=== PATIENT | female | born 1995 | race Caucasian/White ===

== ENCOUNTER 2018-11-11 23:22 | Emergency (ER) | payer OTHER ==
[2018-11-12] MEDS ORDERED: Norflex 60 MG/2 ML IM ONE (00:01)
[2018-11-12] MEDS ORDERED: TORAdol 30 mg Injection IM ONE (00:01)
[2018-11-12 00:07] LABS: Appearance TURBID (CLEAR); Bacteria MODERATE /HPF (NEGATIVE); Bilirubin NEGATIVE (NEGATIVE); Blood MODERATE Ery/ul (0-5); Epithelial Cells FEW /HPF (FEW); Glucose NEGATIVE (NEGATIVE); Ketones NEGATIVE (NEGATIVE); Leukocyte Esterase NEGATIVE (NEGATIVE); Nitrite NEGATIVE (NEGATIVE); Protein,Urine Dip NEGATIVE (Negative); RBC 0-2 /HPF (0-2); Specific Gravity 1.021 (1.005-1.025); Urobilinogen NEGATIVE mg/dL (0-1)
[2018-11-12] MEDS ORDERED: Norflex 60 MG/2 ML ONE (00:08)
[2018-11-12] MEDS ORDERED: TORAdol 30 mg Injection ONE (00:08)
[2018-11-12] MEDS ORDERED: Macrobid 100MG Capsule PO ONE (00:19)
[2018-11-12] MEDS ORDERED: Macrobid 100MG Capsule ONE (00:24)
--- NOTE | 2018-11-12 00:40 | ERPHSYRPT ---
- History of Present Illness Time Seen by Provider: 11/11/18 23:55 Source: patient Exam Limitations: clinical condition Patient Subjective Stated Complaint: c/o low back pain to middle of back x1 week. went to the [facility] clinic on 11/04/18 and got naproxen and 20 lb weigh limit for work and takes tylenol prn. Pt gets no relief from pain. Pt was pulling mop bucket at work and the door slammed and hit her in the back. Triage Nursing Assessment: lungs clear, heart tones reg, abd large, soft with active bs x4 quad. Pt c/o back pain since 11/03/18 after hurting it at work. Pt saw [facility] on 11/04/18 and received Naproxen with no relief. Physician History: PATIENT STRUCK IN HER LOWER BACK BY DOOR HANDLE AT WORK 1 WEEK AGO AND HAS PERSISTENT PAIN. HAS PAIN UPON LIFTING, BENDING OR TWISTING. DENIES BRUISING TO BACK, RADIATION OF PAIN INTO LEGS. Timing/Duration: week(s) Method of Injury: direct blow Quality: sharp, throbbing Back Pain Location: lumbar spine Severity of Pain-Max: moderate Severity of Pain-Current: moderate Modifying Factors: Improves With: movement Associated Symptoms: denies symptoms Previous symptoms: no prior history Allergies/Adverse Reactions: No Known Drug Allergies Allergy (Verified 05/18/16 11:32) Home Medications: Etonogestrel [Nexplanon] 68 mg SUBDERMAL 11/11/18 [History] Naproxen 500 mg [Naprosyn 500 MG] 500 mg PO BID PRN PRN 11/11/18 [History] Venlafaxine HCl [Venlafaxine HCl ER] 75 mg PO HS 11/11/18 [History] lamoTRIgine [Lamotrigine] 100 mg PO HS 11/11/18 [History] Hx Tetanus, Diphtheria Vaccination/Date Given: Yes Hx Influenza Vaccination/Date Given: Yes Hx Pneumococcal Vaccination/Date Given: No Immunizations Up to Date: Yes - Review of Systems Constitutional: No Symptoms Musculoskeletal: Back Pain, Injury - Past Medical History Pertinent Past Medical History: Yes Neurological History: No Pertinent History ENT History: No Pertinent History Cardiac History: No Pertinent History Respiratory History: No Pertinent History Endocrine Medical History: No Pertinent History Musculoskeletal History: No Pertinent History GI Medical History: Irritable Bowel History: No Pertinent History Psycho-Social History: Anxiety, Bipolar Female Reproductive Disorders: Menstrual Problems Other Medical History: irregular menstual period - Past Surgical History Past Surgical History: Yes Neuro Surgical History: No Pertinent History Cardiac: No Pertinent History Respiratory: No Pertinent History Gastrointestinal: No Pertinent History Genitourinary: No Pertinent History Musculoskeletal: No Pertinent History Female Surgical History: Section Other Surgical History: tonsils - Social History Smoking Status: Current every day smoker How long have you smoked: 4 years Exposure to second hand smoke: Yes Drug Use: none Patient Lives Alone: No - Female History Hx Last Menstrual Period: 11/03/18 Hx Now: No - Nursing Vital Signs Nursing Vital Signs: Initial Vital Signs Temperature 98.3 F 11/11/18 23:42 Pulse Rate 72 11/11/18 23:42 Respiratory Rate 17 11/11/18 23:42 Blood Pressure 152/87 11/11/18 23:42 O2 Sat by Pulse Oximetry 100 11/11/18 23:42 Pain Scale Pain Intensity [Lower Back] 7 Pain Intensity 7 - Physical Exam General Appearance: no apparent distress Back Exam: normal inspection, point tenderness (THERE IS LOCALIZED TENDERNESS RIGHT PARALUMBAR L1-L2, NO SWELLING OR ECCHYMOSIS. NO CVA TENDERNESS) Peripheral Pulses: carotid (R): 2+, carotid (L): 2+, femoral (R): 2+, femoral (L ): 2+, dorsalis-pedis (R): 2+, dorsalis-pedis (L): 2+ Neurologic Exam: alert, 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 Skin Exam: normal color, warm SpO2 Interpretation: normal SpO2: 100 - Radiology Exams L-Spine X-ray Interpretation: Interpreted by me, Negative, No Fracture, No Subluxation Ordered Tests: Active Orders 24 hr Category Date Time Status LUMBAR LIMITED (2 OR 3 VIEWS) Stat Exams 11/12/18 00:01 Taken CULTURE,URINE Stat Lab 11/11/18 23:45 Received HCG,QUALITATIVE URINE Stat Lab 11/11/18 23:45 Completed UA W/RFX UR CULTURE Stat Lab 11/11/18 23:45 Completed Medication Summary Discontinued Medications Generic Name Dose Route Start Last Admin Trade Name Freq PRN Reason Stop Dose Admin Ketorolac Tromethamine 60 mg 11/12/18 00:01 11/12/18 00:10 Toradol 30 Mg Injection IM 11/12/18 00:02 60 mg STAT ONE Administration Ketorolac Tromethamine Confirm 11/12/18 00:08 Toradol 30 Mg Injection Administered 11/12/18 00:09 Dose 60 mg .ROUTE .STK-MED ONE Nitrofurantoin Macrocrystals 100 mg 11/12/18 00:19 11/12/18 00:25 Macrobid 100mg Capsule PO 11/12/18 00:20 100 mg STAT ONE Administration Nitrofurantoin Macrocrystals Confirm 11/12/18 00:24 Macrobid 100mg Capsule Administered 11/12/18 00:25 Dose 100 mg .ROUTE .STK-MED ONE Orphenadrine Citrate 60 mg 11/12/18 00:01 11/12/18 00:09 Norflex 60 Mg/2 Ml IM 11/12/18 00:02 60 mg STAT ONE Administration Orphenadrine Citrate Confirm 11/12/18 00:08 Norflex 60 Mg/2 Ml Administered 11/12/18 00:09 Dose 60 mg .ROUTE .STK-MED ONE Lab/Rad Data: Laboratory Results 11/11/18 11/11/18 Range/Units 23:45 23:45 Urine Color YELLOW (YELLOW) Urine Appearance TURBID (CLEAR) Urine pH 8.0 (5-6) Ur Specific [place] 1.021 (1.005-1.025) Urine Protein NEGATIVE (Negative) Urine Ketones NEGATIVE (NEGATIVE) Urine Blood MODERATE (0-5) Sandeep/ul Urine Nitrite NEGATIVE (NEGATIVE) Urine Bilirubin NEGATIVE (NEGATIVE) Urine Urobilinogen NEGATIVE (0-1) mg/dL Ur Leukocyte Esterase NEGATIVE (NEGATIVE) Urine WBC (Auto) 11-15 (0-5) /HPF Urine RBC (Auto) 0-2 (0-2) /HPF U Epithel Cells (Auto) FEW (FEW) /HPF Urine Bacteria (Auto) MODERATE (NEGATIVE) /HPF Unidentified Crystals 10-25 (NEGATIVE) /HPF Other Casts (Auto) 5-10 (NEGATIVE) /LPF Urine Culture Reflexed YES (NO) Urine Glucose NEGATIVE (NEGATIVE) mg/dL Urine HCG, Qual NEGATIVE (Negative) - Progress Progress: pain not gone completely Progress Note: 11/12/18 00:37 TORADOL 60MG IM, NORFLEX 60MG IM, ADMINISTERED MACROBID 100MG ORALLY Counseled pt/family regarding: lab results, diagnosis, need for follow-up - Departure Departure Disposition: Home Clinical Impression: LOW BACK CONTUSION, URINARY TRACT INFECTION Condition: Stable Critical Care Time: No Referrals: KIET PANDEY NP [Primary Care Provider] - Additional Instructions: NORFLEX 100MG TWICE DAILY FOR 5 DAYS FOR MUSCLE SPASM. PERCOGESIC 1 TABLET EVERY 4-6 HOURS FOR PAIN. ANTIBIOTIC MACROBID 100MG TWICE DAILY FOR 10 DAYS. CONSULT YOUR PRIMARY CARE PROVIDER FOR FOLLOWUP. Prescriptions: Acetaminophen/Diphenhydramine [Percogesic 325-12.5 mg Tablet] 1 each PO Q6H PRN PRN #20 tablet PRN Reason: Pain Nitrofurantoin Macro 100 mg [Macrobid 100MG Capsule] 100 mg PO BID #20 cap Orphenadrine Citrate 100 mg [Norflex 100 MG Tablet] 100 mg PO BID #10 tab
[2018-11-12 00:53] VITALS: BP 140/81; PULSE 78; O2SAT 98
--- NOTE | 2018-11-13 19:38 | XRAY ---
Exam: 3 view lumbar spine series from 11/12/2018. Comparison: None. Indication: 23-year-old female with back pain, she states she "hit" a doorknob one week ago in the back. Findings: AP, lateral, and coned-down lateral films of the lumbosacral junction were obtained. There are 5 [id number] lumbar-type vertebra. The pedicles appear unremarkable. The sacroiliac joints appear normal. The lumbar interspace heights are well-maintained. I see no acute lumbar spine fracture or AP subluxation. No focal bone destruction is seen. Impression: 1. No acute lumbar spine fracture or AP traumatic subluxation is seen.
== END 2018-11-12 00:55 | disposition home or self-care (01) ==
LOC: ED 23:22
DX: S30.0XXA Contusion of lower back and pelvis, initial encounter (principal); W20.8XXA Other cause of strike by thrown, projected or falling object, initial encounter; Y93.E5 Activity, floor mopping and cleaning; Y92.531 Health care provider office as the place of occurrence of the external cause; Y99.0 Civilian activity done for income or pay; N39.0 Urinary tract infection, site not specified; F41.9 Anxiety disorder, unspecified; F31.9 Bipolar disorder, unspecified
CPT/HCPCS: 72100; 81001; 84703; 87086; 96372; 99284; J1885; J2360; A9270-GY

== ENCOUNTER 2018-11-24 14:19 | Emergency (ER) | payer OTHER ==
[2018-11-24] MEDS ORDERED: Zofran 4 MG/2 ML VIAL IV ONE (14:51)
[2018-11-24] MEDS ORDERED: Sodium Chloride 0.9% 1000 ML 1,000 ML IV STA (14:51)
[2018-11-24 14:54] VITALS: BP 156/85; PULSE 81; O2SAT 98
--- NOTE | 2018-11-24 15:00 | ERPHSYRPT ---
- History of Present Illness Time Seen by Provider: 11/24/18 14:58 Historian: patient Exam Limitations: no limitations Patient Subjective Stated Complaint: diarrhea, back pain and possible uti. states hurts da mcleod. Triage Nursing Assessment: alert and in no distress. states diarrhea since yesterday. abdominal cramping. states feels like she has a UTI. states dysuria and difficulty emptying bladder. states pain into back. denies fever Physician History: states diarrhea since yesterday. abdominal cramping. states dysuria and difficulty emptying bladder. states pain into back. Timing/Duration: yesterday Quality: cramping Abdominal Pain Onset Location: generalized abdomen Severity of Pain-Max: mild Severity of Pain-Current: mild Associated Symptoms: loss of appetite, shortness of breath Allergies/Adverse Reactions: No Known Drug Allergies Allergy (Verified 11/24/18 14:56) Home Medications: Etonogestrel [Nexplanon] 68 mg SUBDERMAL 11/11/18 [History] Naproxen 500 mg [Naprosyn 500 MG] 500 mg PO BID PRN PRN 11/11/18 [History] Venlafaxine HCl [Venlafaxine HCl ER] 75 mg PO HS 11/11/18 [History] lamoTRIgine [Lamotrigine] 100 mg PO HS 11/11/18 [History] Hx Tetanus, Diphtheria Vaccination/Date Given: Yes Hx Influenza Vaccination/Date Given: Yes Hx Pneumococcal Vaccination/Date Given: No - Review of Systems Constitutional: No Fever, No Chills Eyes: No Symptoms Ears, Nose, & Throat: No Symptoms Respiratory: No Cough, No Dyspnea Cardiac: No Chest Pain, No Edema, No Syncope Abdominal/Gastrointestinal: Abdominal Pain, Nausea, Vomiting, Diarrhea Genitourinary Symptoms: Dysuria, Frequency Musculoskeletal: No Back Pain, No Neck Pain Skin: No Rash Neurological: No Dizziness, No Focal Weakness, No Sensory Changes Psychological: No Symptoms Endocrine: No Symptoms All Other Systems: Reviewed and Negative - Past Medical History Pertinent Past Medical History: Yes Neurological History: No Pertinent History ENT History: No Pertinent History Cardiac History: No Pertinent History Respiratory History: No Pertinent History Endocrine Medical History: No Pertinent History Musculoskeletal History: No Pertinent History GI Medical History: Irritable Bowel History: No Pertinent History Psycho-Social History: Anxiety, Bipolar Female Reproductive Disorders: Menstrual Problems Other Medical History: irregular menstual period - Past Surgical History Past Surgical History: Yes Neuro Surgical History: No Pertinent History Cardiac: No Pertinent History Respiratory: No Pertinent History Gastrointestinal: No Pertinent History Genitourinary: No Pertinent History Musculoskeletal: No Pertinent History Female Surgical History: Section Other Surgical History: tonsils - Social History Smoking Status: Never smoker How long have you smoked: 4 years Exposure to second hand smoke: No Drug Use: none Patient Lives Alone: No - Female History Hx Last Menstrual Period: 1 month Hx Now: No - Nursing Vital Signs Nursing Vital Signs: Initial Vital Signs Temperature 99.1 F 11/24/18 14:39 Pulse Rate 81 11/24/18 14:39 Respiratory Rate 16 11/24/18 14:39 Blood Pressure 156/85 11/24/18 14:39 O2 Sat by Pulse Oximetry 98 11/24/18 14:39 Pain Scale Pain Intensity 5 - Physical Exam General Appearance: no apparent distress, alert Eye Exam: PERRL/EOMI, eyes nml inspection Ears, Nose, Throat Exam: normal ENT inspection, pharynx normal, moist mucous membranes Neck Exam: normal inspection, non-tender, supple, full range of motion Respiratory Exam: normal breath sounds, lungs clear, No respiratory distress Cardiovascular Exam: regular rate/rhythm, normal heart sounds Gastrointestinal/Abdomen Exam: soft, No tenderness, No mass Back Exam: normal inspection, normal range of motion, No CVA tenderness, No vertebral tenderness Extremity Exam: normal inspection, normal range of motion, pelvis stable Neurologic Exam: alert, 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, cooperative, normal mood/affect, nml cerebellar function, sensation nml, No motor deficits Skin Exam: normal color, warm, dry SpO2: 98 - Course Nursing assessment & vital signs reviewed: Yes Ordered Tests: Active Orders 24 hr Category Date Time Status AMYLASE Stat Lab 11/24/18 15:15 Received CBC W DIFF Stat Lab 11/24/18 15:15 Completed CMP Stat Lab 11/24/18 15:15 Received LIPASE Stat Lab 11/24/18 15:15 Received UA W/RFX UR CULTURE Stat Lab 11/24/18 15:15 Completed Medication Summary Generic Name Dose Route Start Last Admin Trade Name Freq PRN Reason Stop Dose Admin Sodium Chloride 1,000 mls @ 999 mls/hr 11/24/18 14:51 11/24/18 15:12 Sodium Chloride 0.9% 1000 Ml IV 11/24/18 15:51 999 mls/hr .[id number] STA Administration Discontinued Medications Generic Name Dose Route Start Last Admin Trade Name Jagjit PRN Reason Stop Dose Admin Sodium Chloride Confirm 11/24/18 15:07 Sodium Chloride 0.9% 1000 Ml Administered 11/24/18 15:08 Dose 1,000 mls @ ud .ROUTE .STK-MED ONE Ondansetron HCl 4 mg 11/24/18 14:51 11/24/18 15:12 Zofran 4 Mg/2 Ml Vial IV 11/24/18 14:52 4 mg STAT ONE Administration Ondansetron HCl Confirm 11/24/18 15:06 Zofran 4 Mg/2 Ml Vial Administered 11/24/18 15:07 Dose 4 mg .ROUTE .STK-MED ONE Lab/Rad Data: Laboratory Result Diagrams 11/24/18 15:15 Laboratory Results 11/24/18 11/24/18 Range/Units 15:15 15:15 WBC 10.0 (4.0-10.5) K/mm3 RBC 4.33 (4.1-5.4) M/mm3 Hgb 11.4 L (12.0-16.0) gm/dl Hct 35.4 (35-47) % MCV 81.8 (78-100) fl MCH 26.3 (26-32) pg MCHC 32.2 (32-36) g/dl RDW 14.7 H (11.5-14.0) % Plt Count 288 (150-450) K/mm3 MPV 8.8 (6-9.5) fl Gran % 58.8 (36.0-66.0) % Eos # (Auto) 0.21 (0-0.5) Absolute Lymphs (auto) 3.37 (1.0-4.6) Absolute Monos (auto) 0.51 (0.0-1.3) Lymphocytes % 33.7 (24.0-44.0) % Monocytes % 5.1 (0.0-12.0) % Eosinophils % 2.1 (0.00-5.0) % Basophils % 0.3 (0.0-0.4) % Absolute Granulocytes 5.89 (1.4-6.9) Basophils # 0.03 (0-0.4) Urine Color YELLOW (YELLOW) Urine Appearance SLIGHTLY CLOUDY (CLEAR) Urine pH 5.0 (5-6) Ur Specific [place] 1.021 (1.005-1.025) Urine Protein NEGATIVE (Negative) Urine Ketones NEGATIVE (NEGATIVE) Urine Blood MODERATE (0-5) Sandeep/ul Urine Nitrite NEGATIVE (NEGATIVE) Urine Bilirubin NEGATIVE (NEGATIVE) Urine Urobilinogen NEGATIVE (0-1) mg/dL Ur Leukocyte Esterase NEGATIVE (NEGATIVE) Urine WBC (Auto) NONE (0-5) /HPF Urine RBC (Auto) NONE (0-2) /HPF U Epithel Cells (Auto) RARE (FEW) /HPF Urine Bacteria (Auto) NONE (NEGATIVE) /HPF Urine Mucus (Auto) SLIGHT (NEGATIVE) /HPF Urine Culture Reflexed NO (NO) Urine Glucose NEGATIVE (NEGATIVE) mg/dL - Progress Progress: improved Counseled pt/family regarding: lab results, diagnosis, need for follow-up - Departure Departure Disposition: Home Clinical Impression: Viral syndrome Condition: Stable Critical Care Time: No Referrals: KIET PANDEY NP [Primary Care Provider] - Additional Instructions: Discharge/Care Plan MOLLY CHACON was seen on 11/24/18 in the Emergency Room. The patient was counseled regarding Diagnosis,Lab results, Imaging studies, need for follow up and when to return to the Emergency Room. Prescriptions given: Discharge Note I have spoken with the patient and/or caregivers. I have explained the patient' s condition, diagnosis and treatment plan based on the information available to me at this time. I have answered the patient's and/or caregiver's questions and addressed any concerns. The patient and/or caregivers have as good understanding of the patient's diagnosis, condition and treatment plan as can be expected at this point. The vital signs have been stable. The patient's condition is stable and appropriate for discharge from the emergency department. The patient will pursue further outpatient evaluation with the primary care physician or other designated or consulting physician as outlined in the discharge instructions. The patient and/or caregivers are agreeable to this plan of care and follow-up instructions have been explained in detail. The patient and/or caregivers have received these instruction. The patient/and or caregivers are aware that any significant change in condition or worsening of symptoms should prompt an immediate return to this or the closest emergency department or call 911. Prescriptions: Ondansetron ODT 4 MG [Zofran Odt 4 mg] 4 mg PO Q6H PRN PRN #10 tab.rapdis PRN Reason: Nausea
[2018-11-24] MEDS ORDERED: Zofran 4 MG/2 ML VIAL ONE (15:06)
[2018-11-24] MEDS ORDERED: Sodium Chloride 0.9% 1000 ML 1,000 ML ONE (15:07)
[2018-11-24 15:18] LABS: BASOPHIL % 0.3 % (0.0-0.4); Basophil (Absolute #) 0.03 (0-0.4); Eosinophil % 2.1 % (0.00-5.0); Eosinophil (Absolute #) 0.21 (0-0.5); Granulocyte Absolute (ANC) 5.89 (1.4-6.9); Granulocytes % 58.8 % (36.0-66.0); Hematocrit 35.4 % (35-47); Hemoglobin 11.4 gm/dl (12.0-16.0); Lymphocyte (Absolute #) 3.37 (1.0-4.6); Lymphocytes % 33.7 % (24.0-44.0); Mean Cell Volume 81.8 fl (78-100); Mean Corpuscular Hemoglobin 26.3 pg (26-32); Mean Corpuscular Hgb Concent. 32.2 g/dl (32-36); Mean Platelet Volume 8.8 fl (6-9.5); Monocyte (Absolute #) 0.51 (0.0-1.3); Monocytes % 5.1 % (0.0-12.0); Platelet Count 288 K/mm3 (150-450); Red Blood Count 4.33 M/mm3 (4.1-5.4); Red Cell Distribution Width 14.7 % (11.5-14.0)
[2018-11-24 15:19] LABS: Appearance SLIGHTLY CLOUDY (CLEAR); Bilirubin NEGATIVE (NEGATIVE); Blood MODERATE Ery/ul (0-5); Epithelial Cells RARE /HPF (FEW); Glucose NEGATIVE (NEGATIVE); Ketones NEGATIVE (NEGATIVE); Leukocyte Esterase NEGATIVE (NEGATIVE); Mucus SLIGHT /HPF (NEGATIVE); Nitrite NEGATIVE (NEGATIVE); Protein,Urine Dip NEGATIVE (Negative); Specific Gravity 1.021 (1.005-1.025); Urobilinogen NEGATIVE mg/dL (0-1)
[2018-11-24 15:29] LABS: ALBUMIN 3.9 g/dL (3.5-5.0); ALKALINE PHOSPHATASE 74 U/L (38-126); AMYLASE 55 U/L (30-110); ANION GAP 11.6 MEQ/L (5-15); BLOOD UREA NITROGEN 14 mg/dL (7-17); CHLORIDE 105 mmol/L (98-107); Calcium 9.1 mg/dL (8.4-10.2); Carbon Dioxide 26 mmol/L (22-30); Creatinine 1 0.55 mg/dL (0.52-1.04); Glucose 81 mg/dL (74-106); LIPASE 30 U/L (23-300); Potassium 3.8 mmol/L (3.5-5.1); SGOT/AST 16 U/L (14-36); SGPT/ALT 19 U/L (0-35); SODIUM 139 mmol/L (137-145); Total Protein 7.3 g/dL (6.3-8.2)
== END 2018-11-24 15:57 | disposition home or self-care (01) ==
LOC: ED 14:19
DX: B34.9 Viral infection, unspecified (principal); R19.7 Diarrhea, unspecified; M54.9 Dorsalgia, unspecified; Z79.899 Other long term (current) drug therapy; R11.2 Nausea with vomiting, unspecified; R10.9 Unspecified abdominal pain
CPT/HCPCS: 36415; 80053; 81001; 82150; 83690; 85025; 96360; 96374; 99284; J2405

== ENCOUNTER 2019-03-29 10:24 | Emergency (ER) | payer MEDICAID, OTHER ==
[2019-03-29 10:32] VITALS: BP 116/62; PULSE 77; O2SAT 99
[2019-03-29] MEDS ORDERED: Norflex 60 MG/2 ML IM ONE (10:45)
[2019-03-29] MEDS ORDERED: TORAdol 30 mg Injection IM ONE (10:45)
[2019-03-29] MEDS ORDERED: Phenergan 25 MG INJ IM ONE (10:48)
--- NOTE | 2019-03-29 10:48 | ERPHSYRPT ---
- History of Present Illness Time Seen by Provider: 03/29/19 10:46 Source: patient Exam Limitations: no limitations Patient Subjective Stated Complaint: PT REPORTS HEADACE SINCE YESTERDAY WITH NAUSEA AND VOMITING X 2. LAST EMESIS 0300. REPORTS COLD WITH COUGHING BEGAN 2 WEEKS AGO, STILL HAVING COUGH. COUGHING UP YELLOW/GREEN SPUTUM. Triage Nursing Assessment: PT BROUGHT IN ON STRETCHER FROM AMBLUANCE. PT MOANING , WASHCLOTH OVER FACE. PT APPEARS ANXIOUS, UNABLE TO SIT STILL. Physician History: 22-year-old female came to the emergency room with complaining of severe headache which started yesterday. She states that her headache is all over her head and also causing some visual disturbance on the left side of the eye. Patient also having nausea and vomiting. She took 3 Imitrex but without any help, so she came to the emergency room. Timing/Duration: yesterday Quality: throbbing Head Pain Location: frontal, temporal, occipital, parietal, global Severity of Pain-Max: severe Severity of Pain-Current: severe Recent Head Trauma: frequent headaches, chronic headaches Associated Symptoms: nausea/vomiting, visual disturbance Previous symptoms: same symptoms as today Allergies/Adverse Reactions: No Known Drug Allergies Allergy (Verified 11/24/18 14:56) Home Medications: Etonogestrel [Nexplanon] 68 mg SUBDERMAL UD 11/11/18 [History] Venlafaxine HCl [Venlafaxine HCl ER] 75 mg PO HS 11/11/18 [History] lamoTRIgine [Lamotrigine] 100 mg PO HS 11/11/18 [History] Hx Tetanus, Diphtheria Vaccination/Date Given: Yes Hx Influenza Vaccination/Date Given: Yes Hx Pneumococcal Vaccination/Date Given: No - Review of Systems Constitutional: No Fever, No Chills Eyes: No Symptoms Ears, Nose, & Throat: No Symptoms Respiratory: No Cough, No Dyspnea Cardiac: No Chest Pain, No Edema, No Syncope Abdominal/Gastrointestinal: No Abdominal Pain, No Nausea, No Vomiting, No Diarrhea Genitourinary Symptoms: No Dysuria Musculoskeletal: No Back Pain, No Neck Pain Skin: No Rash Neurological: Headache, No Dizziness, No Focal Weakness, No Sensory Changes Psychological: No Symptoms Endocrine: No Symptoms All Other Systems: Reviewed and Negative - Past Medical History Pertinent Past Medical History: Yes Neurological History: No Pertinent History ENT History: No Pertinent History Cardiac History: No Pertinent History Respiratory History: No Pertinent History Endocrine Medical History: No Pertinent History Musculoskeletal History: No Pertinent History GI Medical History: Irritable Bowel History: No Pertinent History Psycho-Social History: Anxiety, Bipolar Female Reproductive Disorders: Menstrual Problems Other Medical History: irregular menstual period, PRE-ECLAMPSIA - Past Surgical History Past Surgical History: Yes Neuro Surgical History: No Pertinent History Cardiac: No Pertinent History Respiratory: No Pertinent History Gastrointestinal: No Pertinent History Genitourinary: No Pertinent History Musculoskeletal: No Pertinent History Female Surgical History: Section Other Surgical History: tonsils - Social History Smoking Status: Never smoker How long have you smoked: 4 years Exposure to second hand smoke: No Drug Use: none Patient Lives Alone: No - Female History Hx Last Menstrual Period: 03/19/19 Hx Now: No - Nursing Vital Signs Nursing Vital Signs: Initial Vital Signs Temperature 98.7 F 03/29/19 10:31 Pulse Rate 77 03/29/19 10:31 Respiratory Rate 22 03/29/19 10:31 Blood Pressure 116/62 03/29/19 10:31 O2 Sat by Pulse Oximetry 99 03/29/19 10:31 Pain Scale Pain Intensity 10 - Physical Exam General Appearance: no apparent distress Eye Exam: PERRL/EOMI Ears, Nose, Throat Exam: normal ENT inspection, moist mucous membranes Neck Exam: normal inspection, supple, full range of motion, No meningismus Respiratory Exam: normal breath sounds, lungs clear Cardiovascular Exam: regular rate/rhythm, normal heart sounds Gastrointestinal/Abdominal Exam: soft, No tenderness, No distention Back Exam: normal inspection, normal range of motion Mental Status Exam: alert, 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, 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 Exam: normal speech, PERRL, No facial droop Coordination/Gait Exam: normal cerebellar function Motor/Sensory Exam: no motor deficit, no sensory deficit Skin Exam: normal color, warm, dry, No rash SpO2: 99 - Course Nursing assessment & vital signs reviewed: Yes Ordered Tests: Medication Summary Generic Name Dose Route Start Last Admin Trade Name Freq PRN Reason Stop Dose Admin Sodium Chloride 1,000 mls @ 999 mls/hr 03/29/19 11:43 Sodium Chloride 0.9% 1000 Ml IV 03/29/19 12:43 .Q1H1M STA Discontinued Medications Generic Name Dose Route Start Last Admin Trade Name Freq PRN Reason Stop Dose Admin Droperidol 1.25 mg 03/29/19 11:32 Inapsine 5 Mg/2 Ml IV 03/29/19 11:33 STAT ONE Droperidol Confirm 03/29/19 11:49 Inapsine 5 Mg/2 Ml Administered 03/29/19 11:50 Dose 5 mg .ROUTE .STK-MED ONE Sodium Chloride Confirm 03/29/19 11:49 Sodium Chloride 0.9% 1000 Ml Administered 03/29/19 11:50 Dose 1,000 mls @ ud .ROUTE .STK-MED ONE Ketorolac Tromethamine 60 mg 03/29/19 10:45 03/29/19 11:00 Toradol 30 Mg Injection IM 03/29/19 10:46 60 mg STAT ONE Administration Ketorolac Tromethamine Confirm 03/29/19 10:59 Toradol 30 Mg Injection Administered 03/29/19 11:00 Dose 30 mg .ROUTE .STK-MED ONE Ketorolac Tromethamine Confirm 03/29/19 11:01 Toradol 30 Mg Injection Administered 03/29/19 11:02 Dose 30 mg .ROUTE .STK-MED ONE Orphenadrine Citrate 60 mg 03/29/19 10:45 03/29/19 10:59 Norflex 60 Mg/2 Ml IM 03/29/19 10:46 60 mg STAT ONE Administration Orphenadrine Citrate Confirm 03/29/19 10:59 Norflex 60 Mg/2 Ml Administered 03/29/19 11:00 Dose 60 mg .ROUTE .STK-MED ONE Promethazine HCl 25 mg 03/29/19 10:48 03/29/19 11:00 Phenergan 25 Mg Inj IM 03/29/19 10:49 25 mg STAT ONE Administration Promethazine HCl Confirm 03/29/19 10:58 Phenergan 25 Mg Inj Administered 03/29/19 10:59 Dose 25 mg .ROUTE .STK-MED ONE - Progress Progress: improved Air Movement: good Blood Culture(s) Obtained: No Antibiotics given: No Counseled pt/family regarding: diagnosis, need for follow-up - Departure Departure Disposition: Home Clinical Impression: Migraine headache Qualifiers: Migraine type: without aura Status migrainosus presence: without status migrainosus Intractability: intractable Qualified Code(s): G43.019 - Migraine without aura, intractable, without status migrainosus Condition: Stable Critical Care Time: No Referrals: KIET PANDEY NP [Primary Care Provider] - Instructions: Migraine Headache (DC), Headache, Adult (DC) Additional Instructions: HEADACHE 1. After discharge from the emergency department, you should rest at home in a cool, dark, quiet place for 12-24 hours. 2. If any of the following signs or symptoms are noticed, you should be re- evaluated right away: A. Visual changes B. Stiff Neck C. Change in quality or location of pain D. Fever E. Recurrent vomiting 3. If pain medications were prescribed or given, they may cause drowsiness. Discharge/Care Plan MOLLY CHACON was seen on 03/29/19 in the Emergency Room. The patient was counseled regarding Diagnosis,Lab results, Imaging studies, need for follow up and when to return to the Emergency Room. Prescriptions given: Discharge Note I have spoken with the patient and/or caregivers. I have explained the patient' s condition, diagnosis and treatment plan based on the information available to me at this time. I have answered the patient's and/or caregiver's questions and addressed any concerns. The patient and/or caregivers have as good understanding of the patient's diagnosis, condition and treatment plan as can be expected at this point. The vital signs have been stable. The patient's condition is stable and appropriate for discharge from the emergency department. The patient will pursue further outpatient evaluation with the primary care physician or other designated or consulting physician as outlined in the discharge instructions. The patient and/or caregivers are agreeable to this plan of care and follow-up instructions have been explained in detail. The patient and/or caregivers have received these instruction. The patient/and or caregivers are aware that any significant change in condition or worsening of symptoms should prompt an immediate return to this or the closest emergency department or call 911. MOLLY CHACON was seen on 03/29/19 n the Emergency Room. At that time you were treated for an emergent condition, during your visit Laboratory, Radiology and/or other procedures may have been ordered. It is very important that you follow-up with your Primary Care Physician KIET PANDEY within the next 24-48 hours to review your Emergency Room visit and the final results of testing that was ordered. Some test results such as Urine Cultures, Blood Cultures, and other cultures if ordered will not be finalized for 24-48 hours. If you do not have a Primary Care Provider please call the medical records department at [phone] ext [phone] to obtain a copy of your results or you may sign into our patient portal to obtain these results by visiting us @ [email or web address] and completing the following steps: 1. Click on the Patient Portal link 2. Click the Patient Self Enrollment Link to complete the enrollment form and entering your 3. Once the enrollment form is completed you will receive an email with a temporary ID and password at the email address you provided. 4. Next choose a user name and password. Your user name must be at least 4 characters long and your password must be at least 4 characters long. 5. Choose a security question from the list and provide your answer to the question. If you already have signed into the Health Portal you may access your Health Care Information 15/01 by the following steps: 1. Login to our website @ [email or web address] 2. Enter your original user name and password. FAQS The [facility] Health Portal is an online tool that contains your Lab Results, Radiology Reports, Visit History, Discharge Instructions and Health Summary Lab and Radiology Results will not be available for 72 hours on the portal. The Portal is a secure site, passwords are encryted and URLs are re-written so they cannot be copied and pasted. You and authorized family members are the only ones who can access your Portal. Also there is a timeout feature that protects your information if you leave the Portal page open. If you have technical difficulty please use the Contact Us link on the page this will allow you to submit any questions you have regarding the Portal or you may contact the Medical Record Department at [phone] ext [phone]. Prescriptions: Naproxen 375 mg [Naprosyn 375 mg] 375 mg PO Q8H #30 tablet
[2019-03-29] MEDS ORDERED: Phenergan 25 MG INJ ONE (10:58)
[2019-03-29] MEDS ORDERED: TORAdol 30 mg Injection ONE ×2 (10:59→11:01)
[2019-03-29] MEDS ORDERED: Norflex 60 MG/2 ML ONE (10:59)
[2019-03-29] MEDS ORDERED: Inapsine 5 MG/2 ML IV ONE (11:32)
[2019-03-29] MEDS ORDERED: Sodium Chloride 0.9% 1000 ML 1,000 ML IV STA (11:43)
[2019-03-29] MEDS ORDERED: Sodium Chloride 0.9% 1000 ML 1,000 ML ONE (11:49)
[2019-03-29] MEDS ORDERED: Inapsine 5 MG/2 ML ONE (11:49)
== END 2019-03-29 13:21 | disposition home or self-care (01) ==
LOC: ED 10:24
DX: G43.019 Migraine without aura, intractable, without status migrainosus (principal)
CPT/HCPCS: 96360; 96372; 96374; 99284; J1885; J2360; J2550

== ENCOUNTER 2019-08-24 21:36 | Emergency (ER) | payer OTHER ==
[2019-08-24] MEDS ORDERED: BACTRIM DS TABLET PO STA (23:34)
[2019-08-24] MEDS ORDERED: BACTRIM DS TABLET PO ONE (23:37)
--- NOTE | 2019-08-24 23:44 | ERPHSYRPT ---
- History of Present Illness Time Seen by Provider: 08/24/19 22:50 Source: patient Exam Limitations: no limitations Patient Subjective Stated Complaint: Patient had control implant placed in left upper arm 08/19/19. Patient states site has been oozing green drainage since 08/20/19 and has become very sore. Patient has not followed up with OB MD. Triage Nursing Assessment: Patient arrived to ER per self. Patient A/O times 4. Patient able to answer questions appropriatley. Patient with small 0.2 X 0.2 X 0.1 incision to left upper arm R/T control implant. Wound with slight odor and minimal amounts of green drainage. Surrounding skin red in color. Upper arm appears slightly edematous. Patient denies SOB or chest pain. ROM to left upper arm WNL. Cap refill < 3 seconds. Radial pulse to left arm palpable. Physician History: Patient is a 23-year-old female presents to our ED with cellulitis of her left upper extremity. Patient had control implant in her left upper extremity placed on 08/19/2019. Patient states it began to drain. Symptoms got worse. No associated fevers. No nausea or vomiting. No diarrhea. The implant was removed on the next day 08/20/2019. Tetanus up-to-date. Occurred: last week (No injury.) Quality: constant Severity of Pain-Max: moderate Severity of Pain-Current: moderate Extremities Pain Location: arm: left Modifying Factors: Improves With: nothing Allergies/Adverse Reactions: No Known Drug Allergies Allergy (Verified 08/24/19 22:38) Home Medications: Etonogestrel [Nexplanon] 68 mg SUBDERMAL UD 11/11/18 [History] lamoTRIgine [Lamotrigine] 100 mg PO HS 11/11/18 [History] Bupropion HCl Xl 150 mg [Wellbutrin XL 150 MG] 150 mg PO DAILY 08/24/19 [ History] Famotidine [Pepcid] 40 mg PO DAILY 08/24/19 [History] Sertraline HCl 100 mg PO DAILY 08/24/19 [History] Hx Tetanus, Diphtheria Vaccination/Date Given: Yes Hx Influenza Vaccination/Date Given: No Hx Pneumococcal Vaccination/Date Given: No Immunizations Up to Date: Yes - Review of Systems Constitutional: No Fever, No Chills Eyes: No Symptoms Ears, Nose, & Throat: No Symptoms Respiratory: No Cough, No Dyspnea Cardiac: No Chest Pain, No Edema, No Syncope Abdominal/Gastrointestinal: No Abdominal Pain, No Nausea, No Vomiting, No Diarrhea Genitourinary Symptoms: No Dysuria Musculoskeletal: No Symptoms, No Back Pain, No Neck Pain Skin: No Symptoms, No Rash Neurological: No Symptoms, No Dizziness, No Focal Weakness, No Sensory Changes Psychological: No Symptoms Endocrine: No Symptoms All Other Systems: Reviewed and Negative - Past Medical History Pertinent Past Medical History: Yes Neurological History: No Pertinent History ENT History: No Pertinent History Cardiac History: No Pertinent History Respiratory History: No Pertinent History Endocrine Medical History: No Pertinent History Musculoskeletal History: No Pertinent History GI Medical History: No Pertinent History History: No Pertinent History Psycho-Social History: Anxiety, Bipolar Female Reproductive Disorders: Menstrual Problems Other Medical History: irregular menstual period, PRE-ECLAMPSIA - Past Surgical History Past Surgical History: Yes Neuro Surgical History: No Pertinent History Cardiac: No Pertinent History Respiratory: No Pertinent History Gastrointestinal: No Pertinent History Genitourinary: No Pertinent History Musculoskeletal: No Pertinent History Female Surgical History: Section Other Surgical History: tonsils - Social History Smoking Status: Current every day smoker How long have you smoked: 10 years Exposure to second hand smoke: Yes Drug Use: none Patient Lives Alone: No - Female History Hx Last Menstrual Period: Implant Hx Now: No - Nursing Vital Signs Nursing Vital Signs: Initial Vital Signs Temperature 98.4 F 08/24/19 22:22 Pulse Rate 79 08/24/19 22:22 Respiratory Rate 16 08/24/19 22:22 Blood Pressure 142/91 08/24/19 22:22 O2 Sat by Pulse Oximetry 100 08/24/19 22:22 Pain Scale Pain Intensity 6 - Physical Exam General Appearance: alert Eyes, Ears, Nose, Throat Exam: moist mucous membranes Neck Exam: non-tender, supple Cardiovascular/Respiratory Exam: chest non-tender, normal breath sounds, regular rate/rhythm, no respiratory distress Abdominal Exam: non-tender, No guarding Back Exam: normal inspection, No vertebral tenderness Elbow/Forearm Exam: normal inspection Wrist Exam: normal inspection Hand Exam: normal inspection Neuro/Tendon Exam: normal sensation, normal motor functions Mental Status Exam: alert, 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, cooperative Skin Exam: normal color, warm, dry, other (Medial aspect of her left upper arm has a punctate lesion which is draining. No lymphangitis observed. The drainage appears to be clear. The extremity is neurovascular intact distally. Compartments are soft. Patient has no foreign body sensation of the area of involvement.) SpO2 Interpretation: normal SpO2: 100 O2 Delivery: Room Air Ordered Tests: Medication Summary Discontinued Medications Generic Name Dose Route Start Last Admin Trade Name Jagjit PRN Reason Stop Dose Admin Trimethoprim/Sulfamethoxazole 1 tab 08/24/19 23:34 08/24/19 23:39 Bactrim Ds Tablet PO 08/24/19 23:35 1 tab STAT STA Administration Trimethoprim/Sulfamethoxazole Confirm 08/24/19 23:37 Bactrim Ds Tablet Administered 08/24/19 23:38 Dose 1 tab PO .STJobinasecond-MED ONE - Progress Progress: improved Progress Note: 08/24/19 23:45 Patient reassessed. She feels well. Patient declined pain medication. No active pain at this time. Patient received a dose of Bactrim in our ED. A prescription for the same was transmitted to her pharmacy. Patient states she is ready for discharge. Counseled pt/family regarding: diagnosis, need for follow-up - Departure Departure Disposition: Home Clinical Impression: Cellulitis Condition: Stable Critical Care Time: No Referrals: AMALIA SILVA [Primary Care Provider] - Instructions: Cellulitis (Skin Infection), Child (DC) Additional Instructions: Discharge/Care Plan MOLLY CHACON was seen on 08/24/19 in the Emergency Room. The patient was counseled regarding Diagnosis,Lab results, Imaging studies, need for follow up and when to return to the Emergency Room. Prescriptions given: Discharge Note I have spoken with the patient and/or caregivers. I have explained the patient' s condition, diagnosis and treatment plan based on the information available to me at this time. I have answered the patient's and/or caregiver's questions and addressed any concerns. The patient and/or caregivers have as good understanding of the patient's diagnosis, condition and treatment plan as can be expected at this point. The vital signs have been stable. The patient's condition is stable and appropriate for discharge from the emergency department. The patient will pursue further outpatient evaluation with the primary care physician or other designated or consulting physician as outlined in the discharge instructions. The patient and/or caregivers are agreeable to this plan of care and follow-up instructions have been explained in detail. The patient and/or caregivers have received these instruction. The patient/and or caregivers are aware that any significant change in condition or worsening of symptoms should prompt an immediate return to this or the closest emergency department or call 911. Prescriptions: Smz/Tmp Ds Tablet [Bactrim Ds Tablet] 1 udtab PO BID #14 tablet
[2019-08-24 23:49] VITALS: BP 122/76; PULSE 72; O2SAT 99
== END 2019-08-24 23:49 | disposition home or self-care (01) ==
LOC: ED 21:36
DX: L03.114 Cellulitis of left upper limb (principal); Z79.899 Other long term (current) drug therapy
CPT/HCPCS: 99283; A9270-GY

== ENCOUNTER 2020-04-28 16:31 | Emergency (ER) | payer OTHER ==
[2020-04-28] MEDS ORDERED: KEFLEX 500 MG PO ONE (17:00)
[2020-04-28] MEDS ORDERED: KEFLEX 500 MG ONE (17:08)
--- NOTE | 2020-04-28 17:10 | ERPHSYRPT ---
- History of Present Illness Time Seen by Provider: 04/28/20 16:45 Source: patient Exam Limitations: no limitations Patient Subjective Stated Complaint: Pt states "I went to [facility] on sunday and they gave me bactrim because I either have a spider bite or MRSA on my right elbow. I also think I have a UTI." Triage Nursing Assessment: Pt presented alert and oriented X 3, skin pwd Pt ambulates with an upright steady gait, able to speak in clear full sentences. Pt has open wound on her right forearm, small open sore on her right elbow and a red wound on the bridge of her nose. Physician History: Painful red itchy and burning areas on the posterior aspect of the right elbow and also on the nose bridge few days patient is already on Bactrim for the same Timing/Duration: day(s) (3) Severity: moderate Modifying Factors: Worsens With: immobilization, medication, movement Associated Symptoms: denies symptoms Allergies/Adverse Reactions: No Known Drug Allergies Allergy (Verified 08/24/19 22:38) Home Medications: lamoTRIgine [Lamotrigine] 100 mg PO HS 11/11/18 [History] Bupropion HCl Xl 150 mg [Wellbutrin XL 150 MG] 150 mg PO DAILY 08/24/19 [History] Famotidine [Pepcid] 40 mg PO DAILY 08/24/19 [History] Sertraline HCl 100 mg PO DAILY 08/24/19 [History] Hx Tetanus, Diphtheria Vaccination/Date Given: Yes Hx Influenza Vaccination/Date Given: No Hx Pneumococcal Vaccination/Date Given: No Immunizations Up to Date: Yes Travel Risk - International Travel Have you traveled outside of the country in past 3 weeks: No - Coronavirus Screening Are you exhibiting any of the following symptoms?: No Close contact with a COVID-19 positive Pt in past 14-21 Days: No - Review of Systems Constitutional: No Fever, No Chills Eyes: No Symptoms Ears, Nose, & Throat: No Symptoms Respiratory: No Cough, No Dyspnea Cardiac: No Chest Pain, No Edema, No Syncope Abdominal/Gastrointestinal: No Abdominal Pain, No Nausea, No Vomiting, No Diarrhea Genitourinary Symptoms: No Dysuria Musculoskeletal: Other (Painful red itchy and burning areas on the posterior aspect of the right elbow and also on the nose bridge ), No Back Pain, No Neck Pain Skin: Other (Painful red itchy and burning areas on the posterior aspect of the right elbow and also on the nose bridge ), No Rash Neurological: No Dizziness, No Focal Weakness, No Sensory Changes Psychological: No Symptoms Endocrine: No Symptoms All Other Systems: Reviewed and Negative - Past Medical History Pertinent Past Medical History: Yes Neurological History: No Pertinent History ENT History: No Pertinent History Cardiac History: No Pertinent History Respiratory History: No Pertinent History Endocrine Medical History: No Pertinent History Musculoskeletal History: No Pertinent History GI Medical History: No Pertinent History History: No Pertinent History Psycho-Social History: Anxiety, Bipolar Female Reproductive Disorders: Menstrual Problems Other Medical History: irregular menstual period, PRE-ECLAMPSIA - Past Surgical History Past Surgical History: Yes Neuro Surgical History: No Pertinent History Cardiac: No Pertinent History Respiratory: No Pertinent History Gastrointestinal: No Pertinent History Genitourinary: No Pertinent History Musculoskeletal: No Pertinent History Female Surgical History: Section Other Surgical History: tonsils - Social History Smoking Status: Current every day smoker How long have you smoked: years Exposure to second hand smoke: Yes Drug Use: none Patient Lives Alone: No - Female History Hx Last Menstrual Period: 04/08/2020 Hx Now: No - Nursing Vital Signs Nursing Vital Signs: Initial Vital Signs Temperature 99.0 F 04/28/20 16:42 Pulse Rate 94 H 04/28/20 16:42 Respiratory Rate 20 04/28/20 16:42 Blood Pressure 143/94 04/28/20 16:42 O2 Sat by Pulse Oximetry 99 04/28/20 16:42 Pain Scale Pain Intensity 4 - Physical Exam General Appearance: no apparent distress, alert Eye Exam: PERRL/EOMI, eyes nml inspection Ears, Nose, Throat Exam: normal ENT inspection, TMs normal, pharynx normal, moist mucous membranes Neck Exam: normal inspection, non-tender, supple, full range of motion Respiratory Exam: normal breath sounds, lungs clear, No respiratory distress Cardiovascular Exam: regular rate/rhythm, normal heart sounds, normal peripheral pulses Gastrointestinal/Abdomen Exam: soft, normal bowel sounds, No tenderness, No mass Back Exam: normal inspection, normal range of motion, No CVA tenderness, No vertebral tenderness Extremity Exam: normal inspection, normal range of motion, pelvis stable, other (Painful red itchy and burning areas on the posterior aspect of the right elbow and also on the nose bridge C/W Cellulitis) Neurologic Exam: alert, 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, cooperative, normal mood/affect, nml cerebellar function, nml station & gait, sensation nml, No motor deficits Skin Exam: normal color, warm, dry, No rash Lymphatic Exam: No adenopathy SpO2 Interpretation: normal SpO2: 99 O2 Delivery: Room Air - Course Nursing assessment & vital signs reviewed: Yes Ordered Tests: Medication Summary Discontinued Medications Generic Name Dose Route Start Last Admin Trade Name Jagjit PRN Reason Stop Dose Admin Cephalexin HCl 500 mg 04/28/20 17:00 04/28/20 17:08 Keflex 500 Mg PO 04/28/20 17:01 500 mg STAT ONE Administration Cephalexin HCl Confirm 04/28/20 17:08 Keflex 500 Mg Administered 04/28/20 17:09 Dose 500 mg .ROUTE .STK-MED ONE - Progress Progress: unchanged Progress Note: 04/28/20 17:32 No evidence of abscess. No acute life or limb threatening condition on discharge. Patient denies any chance being and does not want to be tested. She states that the urgent care doctor checked for the few days ago. Patient also states that she might have a UTI but she does not want to be checked for a UTI. Counseled pt/family regarding: diagnosis, need for follow-up - Departure Departure Disposition: Home Clinical Impression: Cellulitis Qualifiers: Site of cellulitis: extremity Site of cellulitis of extremity: upper extremity Laterality: right Qualified Code(s): L03.113 - Cellulitis of right upper limb Condition: Stable Critical Care Time: No Referrals: AMALIA SILVA [Primary Care Provider] - Follow Up with PCP/3 days Instructions: MRSA (DC) Additional Instructions: Continue Bactrim Prescriptions: Cephalexin Mh 500 mg [Keflex 500 mg] 500 mg PO BID 7 Days #14 capsule
[2020-04-28 17:38] VITALS: BP 138/90; PULSE 90; O2SAT 98
== END 2020-04-28 17:40 | disposition home or self-care (01) ==
LOC: ED 16:31
DX: L03.113 Cellulitis of right upper limb (principal)
CPT/HCPCS: 99283; A9270-GY

== ENCOUNTER 2020-09-02 19:42 | Emergency (ER) | payer OTHER ==
[2020-09-02] MEDS ORDERED: Sodium Chloride 0.9% 1000 ML 1,000 ML IV STA (20:07)
[2020-09-02] MEDS ORDERED: Sodium Chloride 0.9% 1000 ML 1,000 ML ONE (20:24)
[2020-09-02 20:35] LABS: Absolute Neutrophil Ct (ANC) 8.02 (1.4-6.9); BASOPHIL % 0.3 % (0.0-0.4); Basophil (Absolute #) 0.03 (0-0.4); Eosinophil % 0.9 % (0.00-5.0); Eosinophil (Absolute #) 0.11 (0-0.5); Hemoglobin 11.7 gm/dl (12.0-16.0); Lymphocyte (Absolute #) 2.78 (1.0-4.6); Mean Cell Volume 81.6 fl (78-100); Mean Corpuscular Hemoglobin 26.5 pg (26-32); Mean Corpuscular Hgb Concent. 32.5 g/dl (32-36); Mean Platelet Volume 8.4 fl (7.5-11.0); Monocyte (Absolute #) 0.66 (0.0-1.3); Monocytes % 5.7 % (0.0-12.0); Neutrophil % 69.1 % (36.0-66.0); Platelet Count 288 K/mm3 (150-450); Red Blood Count 4.41 M/mm3 (4.1-5.4); White Blood Count 11.6 K/mm3 (4.0-10.5)
[2020-09-02 20:48] LABS: ALBUMIN 3.8 g/dL (3.5-5.0); ALKALINE PHOSPHATASE 54 U/L (38-126); BLOOD UREA NITROGEN 9 mg/dL (7-17); CHLORIDE 103 mmol/L (98-107); Carbon Dioxide 23 mmol/L (22-30); Creatinine 1 0.42 mg/dL (0.52-1.04); EST GLOMERULAR FILTRATION RATE > 60.0 ML/MIN; Glucose 99 mg/dL (74-106); Potassium 3.6 mmol/L (3.5-5.1); SGOT/AST 16 U/L (14-36); SGPT/ALT 16 U/L (0-35); SODIUM 135 mmol/L (137-145)
[2020-09-02 21:12] LABS: ABO TYPING A; Antibody Screen NEGATIVE (NEGATIVE); RH TYPING NEGATIVE
--- NOTE | 2020-09-02 22:12 | ERPHSYRPT ---
- History of Present Illness Time Seen by Provider: 09/02/20 19:44 Source: patient Exam Limitations: no limitations Patient Subjective Stated Complaint: pt states "I have been bleeding for the past 45 minutes and I'm 11 weeks ." Triage Nursing Assessment: pt ambulated into the er; pt is axo x4; pt is anxious, tearful; c/o bleeding during ; pt states that she is 11 weeks ; pt denies pain at this time; pt states that she had cramping 40 minutes prior; pt states that when she went to the restroom she had dark red blood; pt states that she seen her OB doctor on august 24; pt states that she has been constipated for the past 2 weeks and was able to have BM this morning; no tenderness with palpation; active bowel sounds; vitals wnl Physician History: 24 years old 2 para 1 at 11 weeks gestation presented in the ER with sudden onset pelvic cramping and when she urinated noticed some dark blood in the commode and upon wiping without any clots. Denies passing any tissues. Her cramping is better now. Denies any urinary symptoms. Timing/Duration: sudden, improved Activites at Onset: rest Quality: cramping Onset Location: pelvic pain Pain Radiation: none Severity of Pain-Max: moderate Severity of Pain-Current: mild Prior abdominal problems: none Sexual intercourse history: non-contributory Modifying Factors: Improves With: nothing Allergies/Adverse Reactions: morphine Allergy (Verified 09/02/20 19:50) Vomiting Home Medications: lamoTRIgine [Lamotrigine] 100 mg PO HS 11/11/18 [History] Bupropion HCl Xl 150 mg [Wellbutrin XL 150 MG] 150 mg PO DAILY 08/24/19 [H istory] Famotidine [Pepcid] 40 mg PO DAILY 08/24/19 [History] Sertraline HCl 100 mg PO DAILY 08/24/19 [History] Hx Tetanus, Diphtheria Vaccination/Date Given: Yes Hx Influenza Vaccination/Date Given: Yes Hx Pneumococcal Vaccination/Date Given: No Travel Risk - International Travel Have you traveled outside of the country in past 3 weeks: No - Coronavirus Screening Are you exhibiting any of the following symptoms?: No Close contact with a COVID-19 positive Pt in past 14-21 Days: No - Review of Systems Constitutional: No Symptoms Eyes: No Symptoms Ears, Nose, & Throat: No Symptoms Respiratory: No Symptoms Cardiac: No Symptoms Abdominal/Gastrointestinal: No Symptoms Genitourinary Symptoms: , Vaginal Bleeding Musculoskeletal: No Symptoms Skin: No Symptoms Neurological: No Symptoms Psychological: No Symptoms Endocrine: No Symptoms Hematologic/Lymphatic: No Symptoms Immunological/Allergic: No Symptoms - Past Medical History Pertinent Past Medical History: Yes Neurological History: No Pertinent History ENT History: No Pertinent History Cardiac History: No Pertinent History Respiratory History: No Pertinent History Endocrine Medical History: No Pertinent History Musculoskeletal History: No Pertinent History GI Medical History: No Pertinent History History: No Pertinent History Psycho-Social History: Anxiety, Bipolar Female Reproductive Disorders: Menstrual Problems Other Medical History: irregular menstual period, PRE-ECLAMPSIA - Past Surgical History Past Surgical History: Yes Neuro Surgical History: No Pertinent History Cardiac: No Pertinent History Respiratory: No Pertinent History Gastrointestinal: No Pertinent History Genitourinary: No Pertinent History Musculoskeletal: No Pertinent History Female Surgical History: Section Other Surgical History: tonsils - Social History Smoking Status: Current every day smoker How long have you smoked: years Exposure to second hand smoke: No Drug Use: none Patient Lives Alone: No - Female History Hx Now: Yes (11 weeks) - Nursing Vital Signs Nursing Vital Signs: Initial Vital Signs Temperature 98.6 F 09/02/20 19:50 Pulse Rate 94 H 09/02/20 19:50 Respiratory Rate 16 09/02/20 19:50 Blood Pressure 143/91 09/02/20 19:50 O2 Sat by Pulse Oximetry 99 09/02/20 19:50 Pain Scale Pain Intensity 0 - Physical Exam General Appearance: no apparent distress Eye Exam: eyes nml inspection Ears, Nose, Throat Exam: normal ENT inspection, pharynx normal Neck Exam: normal inspection, full range of motion Respiratory Exam: normal breath sounds, lungs clear Cardiovascular Exam: regular rate/rhythm, normal heart sounds Gastrointestinal/Abdomen Exam: soft, normal bowel sounds, No tenderness Pelvic Exam: not done Back Exam: normal inspection, normal range of motion, No CVA tenderness Extremity Exam: normal inspection, normal range of motion Neurologic Exam: alert, 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, cooperative Skin Exam: normal color, warm SpO2 Interpretation: normal SpO2: 100 O2 Delivery: Room Air Ordered Tests: Active Orders 24 hr Category Date Time Status OB <14 WKS 1ST GESTATION [US] Stat Exams 09/02/20 20:08 Taken CBC W DIFF Stat Lab 09/02/20 20:20 Completed CMP Stat Lab 09/02/20 20:20 Completed HCG, Quantitative (Inhouse) Stat Lab 09/02/20 20:20 Completed Medication Summary Discontinued Medications Generic Name Dose Route Start Last Admin Trade Name Jagjit PRN Reason Stop Dose Admin Sodium Chloride 1,000 mls @ 999 mls/hr 09/02/20 20:07 09/02/20 22:13 Sodium Chloride 0.9% 1000 Ml IV 09/02/20 21:07 Infused .Q1H1M STA Infusion Sodium Chloride Confirm 09/02/20 20:24 Sodium Chloride 0.9% 1000 Ml Administered 09/02/20 20:25 Dose 1,000 mls @ ud .ROUTE .[facility]-MED ONE Lab/Rad Data: Laboratory Result Diagrams 09/02/20 20:20 09/02/20 20:20 Laboratory Results 09/02/20 09/02/20 09/02/20 Range/Units 20:20 20:20 20:20 WBC (4.0-10.5) K/mm3 RBC (4.1-5.4) M/mm3 Hgb (12.0-16.0) gm/dl Hct (35-47) % MCV (78-100) fl MCH (26-32) pg MCHC (32-36) g/dl RDW (11.5-14.0) % Plt Count (150-450) K/mm3 MPV (7.5-11.0) fl Gran % (36.0-66.0) % Eos # (Auto) (0-0.5) Absolute Lymphs (auto) (1.0-4.6) Absolute Monos (auto) (0.0-1.3) Lymphocytes % (24.0-44.0) % Monocytes % (0.0-12.0) % Eosinophils % (0.00-5.0) % Basophils % (0.0-0.4) % Absolute Granulocytes (1.4-6.9) Basophils # (0-0.4) Sodium 135 L (137-145) mmol/L Potassium 3.6 (3.5-5.1) mmol/L Chloride 103 (98-107) mmol/L Carbon Dioxide 23 (22-30) mmol/L Anion Gap 13.0 (5-15) MEQ/L BUN 9 (7-17) mg/dL Creatinine 0.42 L (0.52-1.04) mg/dL Estimated GFR > 60.0 ML/MIN Glucose 99 (74-106) mg/dL Calcium 9.0 (8.4-10.2) mg/dL Total Bilirubin 0.10 L (0.2-1.3) mg/dL AST 16 (14-36) U/L ALT 16 (0-35) U/L Alkaline Phosphatase 54 (38-126) U/L Serum Total Protein 7.0 (6.3-8.2) g/dL Albumin 3.8 (3.5-5.0) g/dL Beta HCG, Quant 34424 mIU/ml ABO Group A Rh Factor NEGATIVE Antibody Screen NEGATIVE (NEGATIVE) 09/02/20 Range/Units 20:20 WBC 11.6 H (4.0-10.5) K/mm3 RBC 4.41 (4.1-5.4) M/mm3 Hgb 11.7 L (12.0-16.0) gm/dl Hct 36.0 (35-47) % MCV 81.6 (78-100) fl MCH 26.5 (26-32) pg MCHC 32.5 (32-36) g/dl RDW 16.0 H (11.5-14.0) % Plt Count 288 (150-450) K/mm3 MPV 8.4 (7.5-11.0) fl Gran % 69.1 H (36.0-66.0) % Eos # (Auto) 0.11 (0-0.5) Absolute Lymphs (auto) 2.78 (1.0-4.6) Absolute Monos (auto) 0.66 (0.0-1.3) Lymphocytes % 24.0 (24.0-44.0) % Monocytes % 5.7 (0.0-12.0) % Eosinophils % 0.9 (0.00-5.0) % Basophils % 0.3 (0.0-0.4) % Absolute Granulocytes 8.02 H (1.4-6.9) Basophils # 0.03 (0-0.4) Sodium (137-145) mmol/L Potassium (3.5-5.1) mmol/L Chloride (98-107) mmol/L Carbon Dioxide (22-30) mmol/L Anion Gap (5-15) MEQ/L BUN (7-17) mg/dL Creatinine (0.52-1.04) mg/dL Estimated GFR ML/MIN Glucose (74-106) mg/dL Calcium (8.4-10.2) mg/dL Total Bilirubin (0.2-1.3) mg/dL AST (14-36) U/L ALT (0-35) U/L Alkaline Phosphatase (38-126) U/L Serum Total Protein (6.3-8.2) g/dL Albumin (3.5-5.0) g/dL Beta HCG, Quant mIU/ml ABO Group Rh Factor Antibody Screen (NEGATIVE) - Progress Progress: improved Air Movement: good Progress Note: 09/02/20 22:11 She is given fluid bolus, offered pain medication which she refused as her cramps are improved. She has a stable work-up, I have obtained ultrasound which showed heart tones around 150s with gestational age 11 weeks / 6 days without any subchorionic bleed and no other acute findings per preliminary report, official report is pending. At this point I do not think patient needs emergent OB consultation, recommended pelvic rest and increase hydration and outpatient follow-up with Dr. Aggarwal her primary OB tomorrow. Discussed signs symptoms of worsening needing return to ER which she seems understanding. Blood Culture(s) Obtained: No Antibiotics given: No Counseled pt/family regarding: lab results, diagnosis, need for follow-up, rad results - Departure Departure Disposition: Home Clinical Impression: Vaginal bleeding affecting early Condition: Stable Critical Care Time: No Referrals: AMALIA SILAV [Primary Care Provider] - Follow Up with PCP/3 days Instructions: Threatened Miscarriage (DC), Bleeding With (DC) Additional Instructions: Drink plenty of fluids. Take Tylenol as needed for cramping. Pelvic rest. Follow-up with your OB tomorrow for reevaluation. Return to ER for increased cramping or vaginal bleeding.
[2020-09-02 23:03] VITALS: BP 131/83; PULSE 83
[2020-09-02 23:14] VITALS: O2SAT 100
--- NOTE | 2020-09-03 09:11 | XRAY ---
Indication: Vaginal bleeding. First trimester . Two-dimensional transabdominal early OB ultrasound performed. Comparison: None for this . There is a single viable intrauterine with heart rate 150 bpm. Mean crown-rump length measures 4.79 cm corresponding to 11 weeks 4 days. No abnormal posterior retroplacental fluid. Right ovary unremarkable. Left ovary not seen. No suspicious adnexal mass or free fluid. Impression: Single viable intrauterine measuring 11 weeks 4 days. Expected date confinement is March 20, 2021. No acute findings. Comment: Preliminary report was given.
== END 2020-09-02 23:03 | disposition home or self-care (01) ==
LOC: ED 19:42
DX: O20.9 Hemorrhage in early pregnancy, unspecified (principal); Z3A.01 Less than 8 weeks gestation of pregnancy
CPT/HCPCS: 36000; 36415; 76801; 80053; 84702; 85025; 86850; 86900; 86901; 96360; 99284

== ENCOUNTER 2022-11-07 14:26 | Emergency (ER) | payer OTHER ==
[2022-11-07 14:45] VITALS: O2SAT 98
--- NOTE | 2022-11-07 14:58 | ERPHSYRPT ---
- History of Present Illness Time Seen by Provider: 11/07/22 14:50 Source: patient Exam Limitations: no limitations Patient Subjective Stated Complaint: Pt took a new med today, Caplyta, and it is causing her to be dizzy and her whole body felt like it was on fire and now it is just the top of her head and it runs down her back, states that it makes her feel "drunk" Triage Nursing Assessment: Pt brought to the ER by her mother, vitals wnl, rates head and back pain as 5/10, says that it feels like it's on fire, pt called her doctor and they just told her not to take anymore of the pills, pt feels as if she is "drunk" and in a brain fog, no difficulty with breathing, pulses normal, skin n/w/d Physician History: Patient is a 27-year-old female presents to our ED for evaluation of adverse drug reaction. Patient took a new medication prescribed to her. Medication is caplyta. Pain medication was taken at approximately noon. Symptoms started shortly thereafter. Patient feeling slightly dizzy, drunk. Patient states her body feels like it is on fire. No hives. No shortness of breath. Slight nausea. No vomiting. No diaphoresis. Patient declined nausea and dizziness medication. Patient otherwise feels well. She voices no other complaints or concerns at this time. Portions of this note were created with voice recognition technology. There may be grammatical, spelling, punctuation or sound alike errors Timing/Duration: today Severity: moderate Modifying Factors: Improves With: nothing Associated Symptoms: denies symptoms Allergies/Adverse Reactions: lumateperone [From Caplyta] Allergy (Verified 11/07/22 14:49) morphine Allergy (Verified 11/07/22 14:45) Vomiting Home Medications: No Reportable Medications [No Reported Medications] 11/07/22 [History] Hx Tetanus, Diphtheria Vaccination/Date Given: Yes Hx Influenza Vaccination/Date Given: Yes Hx Pneumococcal Vaccination/Date Given: No Travel Risk - International Travel Have you traveled outside of the country in past 3 weeks: No - Coronavirus Screening Are you exhibiting any of the following symptoms?: No Close contact with a COVID-19 positive Pt in past 14-21 Days: No - Vaccine Status Have you recieved a Covid-19 vaccination: Yes [employer]: Moderna - Vaccination Dates Date of 2cond Vaccination (if applicable): no - Review of Systems Constitutional: No Symptoms, No Fever, No Chills Eyes: No Symptoms Ears, Nose, & Throat: No Symptoms Respiratory: No Symptoms, No Cough, No Dyspnea Cardiac: No Symptoms, No Chest Pain, No Edema, No Syncope Abdominal/Gastrointestinal: No Symptoms, No Abdominal Pain, No Nausea, No Vomiting, No Diarrhea Genitourinary Symptoms: No Symptoms, No Dysuria Musculoskeletal: No Symptoms, No Back Pain, No Neck Pain Skin: No Symptoms, No Rash Neurological: No Symptoms, No Dizziness, No Focal Weakness, No Sensory Changes Psychological: No Symptoms Endocrine: No Symptoms Hematologic/Lymphatic: No Symptoms Immunological/Allergic: No Symptoms All Other Systems: Reviewed and Negative - Past Medical History Pertinent Past Medical History: Yes Neurological History: No Pertinent History ENT History: No Pertinent History Cardiac History: No Pertinent History Respiratory History: No Pertinent History Endocrine Medical History: No Pertinent History Musculoskeletal History: No Pertinent History GI Medical History: No Pertinent History History: No Pertinent History Psycho-Social History: Anxiety, Bipolar Female Reproductive Disorders: Menstrual Problems Other Medical History: irregular menstual period, PRE-ECLAMPSIA - Past Surgical History Past Surgical History: Yes Neuro Surgical History: No Pertinent History Cardiac: No Pertinent History Respiratory: No Pertinent History Gastrointestinal: No Pertinent History Genitourinary: No Pertinent History Musculoskeletal: No Pertinent History Female Surgical History: Section Other Surgical History: . - Social History Smoking Status: Current every day smoker How long have you smoked: years Exposure to second hand smoke: Yes Drug Use: none Patient Lives Alone: No - Female History Hx Last Menstrual Period: 10/17/2022 Hx Now: No - Nursing Vital Signs Nursing Vital Signs: Initial Vital Signs Temperature 98.8 F 11/07/22 14:37 Pulse Rate 61 11/07/22 14:37 Blood Pressure 123/73 11/07/22 14:37 O2 Sat by Pulse Oximetry 98 11/07/22 14:37 Pain Scale Pain Intensity 5 - Physical Exam General Appearance: no apparent distress, alert Eye Exam: PERRL/EOMI, eyes nml inspection Ears, Nose, Throat Exam: normal ENT inspection, TMs normal, pharynx normal, moist mucous membranes Neck Exam: normal inspection, non-tender, supple, full range of motion Respiratory Exam: normal breath sounds, lungs clear, airway intact, No respiratory distress Cardiovascular Exam: regular rate/rhythm, normal heart sounds, normal peripheral pulses Gastrointestinal/Abdomen Exam: soft, normal bowel sounds, No tenderness, No mass Back Exam: normal inspection, normal range of motion, No CVA tenderness, No vertebral tenderness Extremity Exam: normal inspection, normal range of motion, pelvis stable Neurologic Exam: alert, 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, cooperative, normal mood/affect, nml cerebellar function, nml station & gait, sensation nml, No motor deficits Skin Exam: normal color, warm, dry, No rash Lymphatic Exam: No adenopathy SpO2 Interpretation: normal SpO2: 98 O2 Delivery: Room Air - Course Nursing assessment & vital signs reviewed: Yes - Progress Progress: improved Progress Note: 27-year-old female presents to our ED with adverse drug reaction. Patient ingested a drug approximately 3 hours prior to arrival. Vital stable. Patient has no respiratory complaints. No pruritus no hives. No hypotension. Patient conversant well-appearing no acute distress. Will discharge home. No indication for work-up. Patient did notify her prescriber regarding the interaction. She was just advised to discontinue the medication. Patient voices no other complaints or concerns at this time. Portions of this note were created with voice recognition technology. There may be grammatical, spelling, punctuation or sound alike errors Complexity of problem addressed is low acute uncomplicated Complexity of data reviewed and analyzed is none. No specialized testing ordered. Diagnosis made based on history and physical examination. Risk of complication and or risk morbidity/mortality of patient management is minimal. No specific management indicated. Will discharge home. Patient agrees to follow-up with her primary care doctor within 48 hours for reevaluation. She voices no other complaints or concerns at this time. Portions of this note were created with voice recognition technology. There may be grammatical, spelling, punctuation or sound alike errors 11/07/22 14:59 Counseled pt/family regarding: diagnosis, need for follow-up - Departure Departure Disposition: Home Clinical Impression: Adverse drug effect Condition: Stable Critical Care Time: No Referrals: KELIN SANZ MD [Primary Care Provider] - Follow up/PCP as directed Additional Instructions: Discharge/Care Plan MOLLY CHACON was seen on 11/07/22 in the Emergency Room. The patient was counseled regarding Diagnosis,Lab results, Imaging studies, need for follow up and when to return to the Emergency Room. Prescriptions given: Discharge Note I have spoken with the patient and/or caregivers. I have explained the patient's condition, diagnosis and treatment plan based on the information available to me at this time. I have answered the patient's and/or caregiver's questions and addressed any concerns. The patient and/or caregivers have as good understanding of the patient's diagnosis, condition and treatment plan as can be expected at this point. The vital signs have been stable. The patient's condition is stable and appropriate for discharge from the emergency department. The patient will pursue further outpatient evaluation with the primary care physician or other designated or consulting physician as outlined in the discharge instructions. The patient and/or caregivers are agreeable to this plan of care and follow-up instructions have been explained in detail. The patient and/or caregivers have received these instruction. The patient/and or caregivers are aware that any significant change in condition or worsening of symptoms should prompt an immediate return to this or the closest emergency department or call 911.
[2022-11-07 15:48] VITALS: BP 103/67; PULSE 52
== END 2022-11-07 15:47 | disposition home or self-care (01) ==
LOC: ED 14:26
DX: R42 Dizziness and giddiness (principal); T50.995A Adverse effect of other drugs, medicaments and biological substances, initial encounter; R11.0 Nausea; Z72.0 Tobacco use
CPT/HCPCS: 99281